=== PATIENT | female | born 1985 | race American Indian/Alaskan Native ===

== ENCOUNTER 2020-11-27 04:20 | Emergency (ER) | payer BC ==
[2020-11-27] MEDS ORDERED: ASPIRIN 325 MG TAB PO ONE (04:24)
--- NOTE | 2020-11-27 04:45 | Emergency Department Report ---
ED Chest Pain HPI - General Chief Complaint: Chest Pain Stated Complaint: CHEST PAIN,LT ARM PAIN,ZITA PUI?: No Time Seen by Provider: 11/27/20 04:37 Source: patient Mode of arrival: Ambulatory Limitations: No Limitations - History of Present Illness Initial Comments: Patient is a 35-year-old female that presents emergency room with complaints of left-sided chest pain and shortness of breath. Patient states chest pain started 1.5 hours ago. Patient states her shortness of breath started 1 hour ago. Patient states that her chest pain is a 8 out of 10. Patient states that the pain is better with rest and worse with movement of the left arm, palpation and deep breath. Patient states she feels like she is short of breath because of the pain in the left chest and because it hurts to take a deep breath. Patient denies chills. Patient denies cough. Patient denies nausea vomiting. Patient denies diaphoresis. Patient denies recent travel. Patient denies recent international travel. Patient denies exposure to the novel coronavirus. Patient denies sick contacts. Patient denies fever and chills. Patient denies cough. Patient denies diarrhea. Patient denies coming in contact with anybody with symptoms of the novel coronavirus. MD Complaint: chest pain -: Sudden Pain Location: left chest Pain Radiation: none Severity scale (0 -10): 8 Consistency: constant Improves With: rest Worsens With: inspiration, palpation, movement re: dyspnea. denies: nausea, vomting, diaphoresis, sense of impending doom Other Symptoms: denies: cough, fever, syncope, rash, acid taste in mouth, leg swelling, palpitations, burping Treatments Prior to Arrival: other (Ibuprofen) Aspirin use within the Past 7 Days: (0) No - Related Data On Oral Contraceptives: No Previous Rx's Medication Instructions Recorded Last Taken Type methylPREDNISolone [Medrol 4MG 4 mg PO DAILY 6 Days #1 tab.ds.pk 11/27/20 Unknown Rx DOSEPAK (21 tabs)] Allergies Allergy/AdvReac Type Severity Reaction Status Date / Time No Known Allergies Allergy Unverified 11/27/20 04:24 Heart Score - HEART Score History: Slightly suspicious EKG: Normal Age: < 45 Risk factors: No known risk factors Troponin: < normal limit HEART Score: 0 ED Review of Systems ROS: Stated complaint: CHEST PAIN,LT ARM PAIN,ZITA Other details as noted in HPI Constitutional: denies: chills, fever Eyes: denies: eye pain, eye discharge, vision change ENT: denies: ear pain, throat pain Respiratory: shortness of breath. denies: cough, wheezing Cardiovascular: chest pain. denies: palpitations Endocrine: no symptoms reported Gastrointestinal: denies: abdominal pain, nausea, diarrhea Genitourinary: denies: urgency, dysuria, discharge Musculoskeletal: denies: back pain, joint swelling, arthralgia Skin: denies: rash, lesions Neurological: denies: headache, weakness, paresthesias Psychiatric: denies: anxiety, depression Hematological/Lymphatic: denies: easy bleeding, easy bruising ED Past Medical Hx - Past Medical History Previous Medical History?: Yes Hx Asthma: Yes - Surgical History Past Surgical History?: Yes Hx Cholecystectomy: Yes - Family History Family history: no significant - Social History Smoking Status: Never Smoker Substance Use Type: None - Medications Home Medications: Home Medications Medication Instructions Recorded Confirmed Last Taken Type methylPREDNISolone [Medrol 4MG 4 mg PO DAILY 6 Days #1 tab.ds.pk 11/27/20 Unknown Rx DOSEPAK (21 tabs)] ED Physical Exam - General Limitations: No Limitations General appearance: alert, in no apparent distress - Head Head exam: Present: atraumatic, normocephalic - Eye Eye exam: Present: normal appearance - ENT ENT exam: Present: mucous membranes moist - Neck Neck exam: Present: normal inspection - Respiratory Respiratory exam: Present: normal lung sounds bilaterally, chest wall tenderness (Tenderness to palpation of the left chest. palpation of the left chest reproduces symptoms.). Absent: respiratory distress - Cardiovascular Cardiovascular Exam: Present: regular rate, normal rhythm. Absent: systolic murmur, diastolic murmur, rubs, gallop - GI/Abdominal GI/Abdominal exam: Present: soft, normal bowel sounds - Extremities Exam Extremities exam: Present: normal inspection - Back Exam Back exam: Present: normal inspection - Neurological Exam Neurological exam: Present: alert, oriented X3 - Psychiatric Psychiatric exam: Present: normal affect, normal mood - Skin Skin exam: Present: warm, dry, intact, normal color. Absent: rash ED Course Vital Signs 11/27/20 11/27/20 04:29 05:10 Temperature 98.3 F Pulse Rate 101 H Respiratory 20 26 H Rate Blood Pressure 137/82 [Left] O2 Sat by Pulse 96 Oximetry - Reevaluation(s) Reevaluation #1: Patient states her pain is better. Patient states her shortness of breath has resolved. I discussed all results and clinical findings with patient. I discussed plan of care with patient. Patient agrees with plan of care. Patient is stable for discharge. Patient will be discharged home. Patient given discharge instructions. Patient voiced understanding of discharge instructions. 11/27/20 06:12 KIM score - Kim Score Age > 65: (0) No Aspirin use within the Past 7 Days: (0) No 3 or more CAD Risk Factors: (0) No 2 or more Angina events in past 24 hrs: (0) No Known CAD with more than 50% Stenosis: (0) No Elevated Cardiac Markers: (0) No ST Deviation Greater than 0.5mm: (0) No KIM Score: 0 ED Medical Decision Making - Lab Data Result diagrams: 11/27/20 04:34 11/27/20 04:34 - EKG Data -: EKG Interpreted by Me EKG shows normal: sinus rhythm, axis, intervals, QRS complexes, ST-T waves Rate: normal - Radiology Data Radiology results: report reviewed, image reviewed interpreted by me: Chest x-ray: No pneumonia, no pneumothorax, no foreign body, no osseous findings, no acute findings - Medical Decision Making Patient is a 35-year-old female that presents emergency room with left sided chest pain. Patient's chest pain was reproducible on exam. Palpation of the left chest reproduces the symptoms. Patient clinical findings are consistent with chest wall pain. Patient had a chest x-ray which was negative for acute findings. Patient had labs done which were unremarkable. Patient's troponin was negative. Patient given steroids in the ER and her symptoms improved. Patient's consistent with costochondritis and muscular chest wall pain. - Differential Diagnosis Chest pain, chest wall tenderness, costochondritis, shortness of breath Critical care attestation.: If time is entered above; I have spent that time in minutes in the direct care of this critically ill patient, excluding procedure time. ED Disposition Clinical Impression: Anterior chest wall pain, SOB (shortness of breath) Chest pain Qualifiers: Chest pain type: unspecified Qualified Code(s): R07.9 - Chest pain, unspecified Disposition: TO HOME OR SELFCARE Is pt being admited?: No Does the pt Need Aspirin: No Condition: Stable Instructions: Chest Pain (ED), Nonspecific Chest Pain, Adult, [id number], Chest Wall Pain, [id number]-[id number] Additional Instructions: Patient to follow-up with primary care in 2 to 3 days. Patient to rest. Patient to increase water. Patient to avoid strenuous exercise or heavy lifting until cleared by primary care. Patient to take Tylenol or ibuprofen as needed for pain. Patient to take meds as directed. Patient to return to the ER if c ondition worsens, changes or new symptoms arise. Prescriptions: methylPREDNISolone [Medrol 4MG DOSEPAK (21 tabs)] 4 mg PO DAILY 6 Days #1 tab.ds.pk Referrals: PRIMARY CARE, [Primary Care Provider] - 2-3 Days Time of Disposition: 06:09
--- NOTE | 2020-11-27 04:55 | XRay Report ---
XR chest 1V ap INDICATION / CLINICAL INFORMATION: Chest Pain COMPARISON: None available. FINDINGS: SUPPORT DEVICES: None. HEART / MEDIASTINUM: No significant abnormality. LUNGS / PLEURA: Lungs are clear. Costophrenic sulci are sharp. No pneumothorax. ADDITIONAL FINDINGS: No significant additional findings. IMPRESSION: 1. No acute findings. Signer Name: Oscar Bello MD Signed: 11/27/2020 4:50 AM Workstation Name: [id number]
[2020-11-27 04:56] LABS: Basophils # (Auto) 0.1 K/mm3 (0.0-0.1); Eosinophils # (Auto) 0.3 K/mm3 (0.0-0.4); Eosinophils % (Auto) 5.7 % (0.0-4.3); Hematocrit 40.9 % (30.3-42.9); Hemoglobin 13.2 gm/dl (10.1-14.3); Lymphocytes # (Auto) 2.5 K/mm3 (1.2-5.4); Lymphocytes % (Auto) 47.6 % (13.4-35.0); Mean Corpuscular HGB Conc 32 % (30-34); Mean Corpuscular Volume 87 fl (79-97); Monocytes # (Auto) 0.4 K/mm3 (0.0-0.8); Monocytes % (Auto) 6.8 % (0.0-7.3); Platelet Count 194 K/mm3 (140-440); Red Blood Count 4.69 M/mm3 (3.65-5.03); Red Cell Distribution Width 13.6 % (13.2-15.2)
[2020-11-27] MEDS ORDERED: methylPREDNISolone Sod Succinate 125 MG/2 ML INJ IV ONE (04:58)
[2020-11-27 05:10] LABS: BUN/Creatinine Ratio 18; Blood Urea Nitrogen 14 mg/dL (7-17); Calcium 8.6 mg/dL (8.4-10.2); Hemolysis Index 18
[2020-11-27 06:32] VITALS: BP 142/82
== END 2020-11-27 06:33 | disposition home or self-care (01) ==
LOC: ED 04:20
DX: R07.89 Other chest pain (principal); R06.02 Shortness of breath; J45.909 Unspecified asthma, uncomplicated; Z90.49 Acquired absence of other specified parts of digestive tract; Z79.899 Other long term (current) drug therapy
CPT/HCPCS: 36415; 71045; 80048; 84484; 84703; 85025; 85379; 93005; 96374; 99284; J2930

== ENCOUNTER 2021-05-12 03:35 | Emergency (ER) | payer BC ==
[2021-05-12] MEDS ORDERED: HYDROcodone/ACETAMINOPHEN 5-325 MG TAB PO ONE (03:56)
[2021-05-12] MEDS ORDERED: ONDANSETRON 4 MG ODT TAB PO ONE (03:56)
[2021-05-12] MEDS ORDERED: KETOROLAC 30 MG/1 ML INJ IM ONE (03:56)
[2021-05-12] MEDS ORDERED: dexAMETHasone 20 MG/5 ML VIAL IM ONE (03:56)
--- NOTE | 2021-05-12 05:05 | Emergency Department Report ---
ED Back Pain/Injury HPI - General Chief Complaint: Back Pain/Injury Stated Complaint: Back pain Source: patient Mode of arrival: Ambulatory Limitations: No Limitations - History of Present Illness Initial Comments: Patient is a 35-year-old -[place] female with a history of asthma presents to the ED with complaint of acute onset persistent nontraumatic low back pain for the last 1 week worse in the last 2 days. Patient states that any movement makes the pain in the low back worse. Patient states that she has been taking dbya-qif-ncaleum pain medications with no relief. Patient denies dizziness, syncope, fall, traumatic injury, heavy lifting, abdominal pain, dysuria, urinary frequency and urgency, chest pain or shortness of breath, hematuria, vaginal bleeding, saddle paresthesia, numbness and tingling or weakness of lower extremities bilaterally. MD Complaint: back pain (Lower back) -: Sudden, week(s) (1) Similar Symptoms Previously: No Place: home Radiation: none Severity: severe Severity scale (0 -10): 8 Quality: sharp, aching Consistency: constant Improves With: none Worsens With: movement, sitting upright, walking Context: turning/twisting Associated Symptoms: denies other symptoms. denies: confusion, weakness, chest pain, numbness, difficulty walking, cough, difficulty urinating, diaphoresis, incontinence, fever/chills, constipation, headaches, abdominal pain, loss of appetite, malaise, nausea/vomiting, rash, seizure, shortness of breath, syncope, other Treatments Prior to Arrival: NSAIDS - Related Data Previous Rx's Medication Instructions Recorded Last Taken Type methylPREDNISolone [Medrol 4MG 4 mg PO DAILY 6 Days #1 tab.ds.pk 11/27/20 Unknown Rx DOSEPAK (21 tabs)] Baclofen 20 mg PO Q12H PRN #30 tablet 05/12/21 Unknown Rx Naproxen 500 mg PO Q12H PRN #30 tablet 05/12/21 Unknown Rx predniSONE [Deltasone] 40 mg PO QDAY #10 tab 05/12/21 Unknown Rx traMADoL [Ultram] 50 mg PO Q6HR PRN #12 tablet 05/12/21 Unknown Rx Allergies Allergy/AdvReac Type Severity Reaction Status Date / Time No Known Allergies Allergy Unverified 11/27/20 04:24 ED Review of Systems ROS: Stated complaint: Other details as noted in HPI Constitutional: denies: chills, fever Eyes: denies: eye pain, eye discharge, vision change ENT: denies: ear pain, throat pain Respiratory: denies: cough, shortness of breath, wheezing Cardiovascular: denies: chest pain, palpitations Endocrine: no symptoms reported Gastrointestinal: denies: abdominal pain, nausea, diarrhea Genitourinary: denies: urgency, dysuria, discharge Musculoskeletal: back pain (lower back pain), arthralgia (pain). denies: joint swelling Skin: denies: rash, lesions Neurological: denies: headache, weakness, paresthesias Psychiatric: denies: anxiety, depression Hematological/Lymphatic: denies: easy bleeding, easy bruising ED Past Medical Hx - Past Medical History Hx Asthma: Yes - Surgical History Hx Cholecystectomy: Yes - Social History Smoking Status: Never Smoker Substance Use Type: None - Medications Home Medications: Home Medications Medication Instructions Recorded Confirmed Last Taken Type methylPREDNISolone [Medrol 4MG 4 mg PO DAILY 6 Days #1 tab.ds.pk 11/27/20 Unknown Rx DOSEPAK (21 tabs)] Baclofen 20 mg PO Q12H PRN #30 tablet 05/12/21 Unknown Rx Naproxen 500 mg PO Q12H PRN #30 tablet 05/12/21 Unknown Rx predniSONE [Deltasone] 40 mg PO QDAY #10 tab 05/12/21 Unknown Rx traMADoL [Ultram] 50 mg PO Q6HR PRN #12 tablet 05/12/21 Unknown Rx ED Physical Exam - General General appearance: alert, in no apparent distress - Head Head exam: Present: atraumatic, normocephalic, normal inspection - Eye Eye exam: Present: normal appearance, PERRL, EOMI Pupils: Present: normal accommodation - ENT ENT exam: Present: normal exam, normal orophraynx, mucous membranes moist, TM's normal bilaterally, normal external ear exam - Neck Neck exam: Present: normal inspection, full ROM - Respiratory Respiratory exam: Present: normal lung sounds bilaterally. Absent: respiratory distress, wheezes, rales, rhonchi, chest wall tenderness, accessory muscle use, decreased breath sounds, prolonged expiratory - Cardiovascular Cardiovascular Exam: Present: regular rate, normal rhythm, normal heart sounds. Absent: systolic murmur, diastolic murmur, rubs, gallop - GI/Abdominal GI/Abdominal exam: Present: soft, normal bowel sounds. Absent: tenderness, guarding, rebound, hyperactive bowel sounds, hypoactive bowel sounds, organomegaly, mass - Extremities Exam Extremities exam: Present: normal inspection, full ROM, normal capillary refill. Absent: tenderness, pedal edema, joint swelling, calf tenderness - Back Exam Back exam: Present: normal inspection, full ROM, tenderness (Palpable lumbosac ral paraspinal musculoskeletal tenderness), muscle spasm, paraspinal tenderness. Absent: CVA tenderness (L), vertebral tenderness, rash noted - Neurological Exam Neurological exam: Present: alert, oriented X3, CN II-XII intact, normal gait, reflexes normal - Psychiatric Psychiatric exam: Present: normal affect, normal mood - Skin Skin exam: Present: warm, dry, intact, normal color. Absent: rash ED Course Vital Signs 05/12/21 05/12/21 03:35 05:20 Temperature 98.2 F Pulse Rate 64 77 Respiratory 16 16 Rate Blood Pressure 158/98 [Right] O2 Sat by Pulse 99 99 Oximetry ED Medical Decision Making - Medical Decision Making This is a 35-year-old -[place] female with a history of asthma presents to the ED with complaint of acute onset persistent nontraumatic low back pain for the last 1 week worse in the last 2 days. Patient states that any movement makes the pain in the low back worse. Patient states that she has been taking ookg-[id number] pain medications with no relief. In the ED, patient is alert and oriented x3 and is not in any distress but appears to be in significant pain. Patient was treated for pain in the ED and urinalysis showed no acute urinary tract infection and is unremarkable. On reevaluation, patient's pain is well controlled medication. Based on the history and physical exam findings, patient symptoms are likely musculoskeletal muscle spasm although other differential diagnoses were also considered. Patient was discharged home on pain medications and advised to follow-up with her primary care physician in 5 to 7 days for reevaluation. Patient was advised return to the ED immediately if symptoms get worse. - Differential Diagnosis Muscle spasm; muscle strain; degenerative joint disease; sciatica Critical care attestation.: If time is entered above; I have spent that time in minutes in the direct care of this critically ill patient, excluding procedure time. ED Disposition Clinical Impression: Acute bilateral low back pain without sciatica, Spasm of muscle of lower back Disposition: DC-01 TO HOME OR SELFCARE Is pt being admited?: No Does the pt Need Aspirin: No Condition: Stable Instructions: Muscle Cramps and Spasms, [id number], Acute Back Pain, Adult, Muscle Strain, [id number] Additional Instructions: Urinalysis is unremarkable. Your symptoms are likely due to musculoskeletal muscle strain or muscle spasm. Therefore take medication with food, drink plenty of fluids and follow-up with your primary care physician in 7 to 10 days for reevaluation. Return to the ED immediately if symptoms get worse. Prescriptions: Baclofen 20 mg PO Q12H PRN #30 tablet PRN Reason: Muscle Spasm predniSONE [Deltasone] 40 mg PO QDAY #10 tab Naproxen 500 mg PO Q12H PRN #30 tablet PRN Reason: Pain , Severe (7-10) traMADoL [Ultram] 50 mg PO Q6HR PRN #12 tablet PRN Reason: Pain Referrals: [facility] [Provider Group] - 3-5 Days Forms: Work/School Release Form(ED) Time of Disposition: 05:02 Print Language: [place]
[2021-05-12 06:35] LABS: Bilirubin,Urine NEG (Negative); Blood,Urine NEG (Negative); Color,Urine Yellow (Yellow); Mucus,Urine FEW /HPF; Protein,Urine <15 mg/dL mg/dL (Negative)
[2021-05-12 06:37] LABS: HCG Qualitative,Urine Negative (Negative)
[2021-05-12 07:22] VITALS: BP 158/98
== END 2021-05-12 05:20 | disposition home or self-care (01) ==
LOC: ED 03:35
DX: M54.42 Lumbago with sciatica, left side (principal); M54.41 Lumbago with sciatica, right side; M62.830 Muscle spasm of back; J45.909 Unspecified asthma, uncomplicated; Z90.49 Acquired absence of other specified parts of digestive tract; Z79.899 Other long term (current) drug therapy
CPT/HCPCS: 81001; 81025

== ENCOUNTER 2021-05-15 12:52 | Inpatient (IN) | payer BC ==
[2021-05-15] MEDS ORDERED: ONDANSETRON 4 MG/2 ML INJ IV ONE ×2 (13:57→16:29)
[2021-05-15] MEDS ORDERED: MORPHINE 2 MG/1 ML INJ IV ONE (13:57)
--- NOTE | 2021-05-15 14:18 | Emergency Department Report ---
ED General Adult HPI - General Chief complaint: Back Pain/Injury Stated complaint: BACK PAIN/SWELLING Time Seen by Provider: 05/15/21 13:29 Source: patient Mode of arrival: Ambulatory Limitations: No Limitations - History of Present Illness Initial comments: 35-year-old -Mauritan[place] female presents to the emergency room for back pain that has gotten worse. Patient states that she was here 2 days ago for the same complaint. Patient reports that the medications that she was discharged on has helped with her back but only if she is taking it. Patient states that the medicine does make her drowsy and she has not been able to follow-up with a pr ovider. Patient states now the pain is radiating to her right flank to the right front of her abdomen. Patient states that she is having some swelling to her right side of her abdomen. She reports that the pain is worsening with minimal movement. Patient denies any trauma. She does admit to nausea and vomiting. She has had her gallbladder removed in 2019. She states that she still has her appendix. She reports her last menstrual period was 04/29/2021. Patient denies any vaginal discharge no vaginal bleeding. Patient denies any fever chills. Onset/Timin Severity scale (0 -10): 10 Quality: stabbing, sharp Consistency: constant Improves with: medication Worsens with: movement Associated Symptoms: nausea/vomiting Treatments Prior to Arrival: NSAID - Related Data Previous Rx's Medication Instructions Recorded Last Taken Type methylPREDNISolone [Medrol 4MG 4 mg PO DAILY 6 Days #1 tab.ds.pk 11/27/20 Unknown Rx DOSEPAK (21 tabs)] Baclofen 20 mg PO Q12H PRN #30 tablet 05/12/21 Unknown Rx Naproxen 500 mg PO Q12H PRN #30 tablet 05/12/21 Unknown Rx predniSONE [Deltasone] 40 mg PO QDAY #10 tab 05/12/21 Unknown Rx traMADoL [Ultram] 50 mg PO Q6HR PRN #12 tablet 05/12/21 Unknown Rx Allergies Allergy/AdvReac Type Severity Reaction Status Date / Time No Known Allergies Allergy Verified 05/15/21 14:06 ED Review of Systems ROS: Stated complaint: BACK PAIN/SWELLING Other details as noted in HPI Comment: All other systems reviewed and negative ED Past Medical Hx - Past Medical History Previous Medical History?: Yes Hx Asthma: Yes - Surgical History Past Surgical History?: Yes Hx Cholecystectomy: Yes - Social History Smoking Status: Never Smoker Substance Use Type: None - Medications Home Medications: Home Medications Medication Instructions Recorded Confirmed Last Taken Type methylPREDNISolone [Medrol 4MG 4 mg PO DAILY 6 Days #1 tab.ds.pk 11/27/20 Unknown Rx DOSEPAK (21 tabs)] Baclofen 20 mg PO Q12H PRN #30 tablet 05/12/21 Unknown Rx Naproxen 500 mg PO Q12H PRN #30 tablet 05/12/21 Unknown Rx predniSONE [Deltasone] 40 mg PO QDAY #10 tab 05/12/21 Unknown Rx traMADoL [Ultram] 50 mg PO Q6HR PRN #12 tablet 05/12/21 Unknown Rx ED Physical Exam - General Limitations: No Limitations General appearance: alert, in distress (Appears uncomfortable) - Head Head exam: Present: atraumatic, normocephalic - Eye Eye exam: Present: normal appearance - ENT ENT exam: Present: normal external ear exam - Neck Neck exam: Present: normal inspection, full ROM - Respiratory Respiratory exam: Present: normal lung sounds bilaterally. Absent: chest wall tenderness, accessory muscle use - Cardiovascular Cardiovascular Exam: Present: regular rate - GI/Abdominal GI/Abdominal exam: Present: soft, distended (Right side), tenderness (Right side abdomen), normal bowel sounds. Absent: guarding - External exam: Present: normal external exam Speculum exam: Present: vaginal discharge Bi-manual exam: Present: cervical motion tendernes, adnexal tenderness - Extremities Exam Extremities exam: Present: normal inspection, full ROM - Back Exam Back exam: Present: tenderness, CVA tenderness (R) - Neurological Exam Neurological exam: Present: alert, oriented X3, abnormal gait - Psychiatric Psychiatric exam: Present: normal affect, normal mood - Skin Skin exam: Present: warm, dry, intact, normal color. Absent: rash ED Course Vital Signs 05/15/21 12:59 Temperature 98.3 F Pulse Rate 85 Respiratory 20 Rate Blood Pressure 139/90 O2 Sat by Pulse 95 Oximetry - Reevaluation(s) Reevaluation #1: 05/15/21 16:00 Patient reports she is having increased pain and requesting for pain medication. Provider put the order in for morphine 4 mg IV and Zosyn 4 mg IV. - Consultations Consultation #1: 05/15/21 18:56 Spoke to Antonia nurse practitioner for Dr. Burkett she states that she give a message for him. Both Dr. Burkett he recommends a pelvic ultrasound. Consultation #2: 05/15/21 19:32 Dr. Burkett came to evaluate patient performed a pelvic exam with hook loader with me. Cultures were obtained and sent to lab ED Medical Decision Making - Lab Data Result diagrams: 05/15/21 14:00 05/15/21 14:00 - Radiology Data Radiology results: report reviewed [facility] [address] [place] [address] Cat Scan Report Signed Patient: SUSAN MARTE MR#: [id number] : 1985 Acct:[id number] Age/Sex: 35 / F ADM Date: 05/15/21 Loc: ED Attending Dr: Ordering Physician: JOANNE ESTRADA Date of Service: 05/15/21 Procedure(s): CT abdomen pelvis w con Accession Number(s): [id number] cc: JOANNE ESTRADA CT ABDOMEN AND PELVIS WITH CONTRAST INDICATION / CLINICAL INFORMATION: Right lower quadrant pain and swelling. TECHNIQUE: Axial CT images were obtained through the abdomen and pelvis after 100 cc of Omnipaque [address] scans at this location are performed using CT dose reduction for ALARA by means of automated exposure control. COMPARISON: None available. FINDINGS: LOWER CHEST: No significant abnormality. LIVER: No significant abnormality. GALLBLADDER: No significant abnormality. BILE DUCTS: No significant abnormality. PANCREAS: No significant abnormality. SPLEEN: No significant abnormality. ADRENALS: No significant abnormality. RIGHT KIDNEY / URETER: No significant abnormality. LEFT KIDNEY / URETER: No significant abnormality. There is a retroaortic left renal vein. This is an anatomic variant STOMACH / SMALL BOWEL: No significant abnormality. COLON: No significant abnormality. APPENDIX: No significant abnormality. PERITONEUM: No free fluid. No free air. No fluid collection. LYMPH NODES: No significant adenopathy. AORTA / ARTERIES: No significant abnormality. IVC / VEINS: No significant abnormality. URINARY BLADDER: No significant abnormality. REPRODUCTIVE ORGANS: Tubal occlusion devices are noted. There are several right adnexal cyst which measure up to 2.6 cm. There is a 1.8 cm cyst in the right vulva. ADDITIONAL FINDINGS: None. SKELETAL SYSTEM: No significant abnormality. IMPRESSION: 1. There are several cysts in the right adnexa. There is a 1.8 cm cyst in the right vulva. There is no obstruction, inflammation, or free air. The appendix is unremarkable. Signer Name: Myles Medellin MD Signed: 05/15/2021 3:18 PM Workstation Name: [email or web address] Transcribed By: SS Dictated By: Myles Medellin MD Electronically Authenticated By: Myles Medellin MD Signed Date/Time: 05/15/211517 DD/ 13 TD/TT: [facility] [address] [place] [address] Ultrasound Report Signed Patient: SUSAN MARTE MR#: [id number] : 1985 Acct:[id number] Age/Sex: 35 / F ADM Date: 05/15/21 Loc: ED Attending Dr: Ordering Physician: JOANNE ESTRADA Date of Service: 05/15/21 Procedure(s): US pelvic complete Accession Number(s): [id number] cc: JOANNE ESTRADA ULTRASOUND PELVIS INDICATION: Multiple pelvic cyst with pelvic pain. TECHNIQUE: Transabdominal. Duplex Color Doppler used: Yes. COMPARISON: None available FINDINGS: Uterus: Present. Size: 8.4 x 4.6 x 5.3 cm. Endometrial complex: Thickened measuring 12 mm. Mass lesions: None. Additional findings: None. Right Ovary -- enlarged right ovary containing 2.0 x 1.4 cm corpus luteal cyst and complex hemorrhagic 3.2 x 2.0 x 2.0 cm cyst Blood flow: Normal. Cyst or mass: None. Left Ovary-- Normal. Blood flow: Normal. Cyst or mass: None. Urinary Bladder: Normal. Free Fluid: None. Additional Findings: None. IMPRESSION: 1. Right ovarian corpus luteal and complex 3.2 cm hemorrhagic cyst. No free fluid. In women of reproductive age: * Cysts 3 cm: At the discretion of the interpreting physician whether or not to describe them in the imaging report; do not need follow-up. Signer Name: Marco Bass MD Signed: 05/15/2021 7:35 PM Workstation Name: [id number] Transcribed By: TL Dictated By: Marco Bass MD Electronically Authenticated By: Marco Bass MD Signed Date/Time: 05/15/211934 DD/ 30 TD/TT: Print Cancel Print Cancel - Medical Decision Making 35-year-old -Mauritan[place] female presents to the emergency room for back pain that has gotten worse. Patient states that she was here 2 days ago for the same complaint. Patient reports that the medications that she was discharged on has helped with her back but only if she is taking it. Patient states that the medicine does make her drowsy and she has not been able to follow-up with a provider. Patient states now the pain is radiating to her right flank to the right front of her abdomen. Patient states that she is having some swelling to her right side of her abdomen. She reports that the pain is worsening with minimal movement. Patient denies any trauma. She does admit to nausea and vomiting. She has had her gallbladder removed in 2019. She states that she still has her appendix. She reports her last menstrual period was 04/29/2021. Patient denies any vaginal discharge no vaginal bleeding. Patient denies any fever chills. CBC CMP lipase urinalysis INT's morphine 2 mg Zofran [address] scan report states that she has an adnexal cyst on her right and 9 vulvar cyst on the right. Patient was examined by Dr. Burkett he recommends patient to be admitted for observation. He would like for me to initiate bridge orders in order for Rocephin [address] g IV[address] In[address] attending Dr. Seda Bunch at the time the patient is going to be admitted. Critical Care Time: Yes (35) Critical care attestation.: If time is entered above; I have spent that time in minutes in the direct care of this critically ill patient, excluding procedure time. ED Disposition Clinical Impression: Pelvic pain, Back pain Disposition: OP ADMIT IP TO THIS HOSP Is pt being admited?: Yes Does the pt Need Aspirin: No Condition: Stable Referrals: PRIMARY CARE, [Primary Care Provider] - 3-5 Days
[2021-05-15 14:19] LABS: Basophils # (Auto) 0.1 K/mm3 (0.0-0.1); Basophils % (Auto) 0.8 % (0.0-1.8); Eosinophils # (Auto) 0.1 K/mm3 (0.0-0.4); Eosinophils % (Auto) 1.9 % (0.0-4.3); Hematocrit 39.4 % (30.3-42.9); Hemoglobin 13.2 gm/dl (10.1-14.3); Lymphocytes # (Auto) 3.5 K/mm3 (1.2-5.4); Lymphocytes % (Auto) 49.4 % (13.4-35.0); Mean Corpuscular HGB Conc 34 % (30-34); Mean Corpuscular Volume 86 fl (79-97); Monocytes # (Auto) 0.4 K/mm3 (0.0-0.8); Monocytes % (Auto) 6.2 % (0.0-7.3); Platelet Count 187 K/mm3 (140-440); Red Blood Count 4.59 M/mm3 (3.65-5.03); Red Cell Distribution Width 14.1 % (13.2-15.2)
[2021-05-15 14:36] LABS: Alanine Aminotransferase 8 units/L (7-56); Albumin 4.1 g/dL (3.9-5); Blood Urea Nitrogen 9 mg/dL (7-17); Calcium 8.7 mg/dL (8.4-10.2); Hemolysis Index 2
[2021-05-15 14:37] LABS: BUN/Creatinine Ratio 13
--- NOTE | 2021-05-15 15:23 | Cat Scan Report ---
CT ABDOMEN AND PELVIS WITH CONTRAST INDICATION / CLINICAL INFORMATION: Right lower quadrant pain and swelling. TECHNIQUE: Axial CT images were obtained through the abdomen and pelvis after 100 cc of Omnipaque [address] scans at this location are performed using CT dose reduction for ALARA by means of automated exposure control. COMPARISON: None available. FINDINGS: LOWER CHEST: No significant abnormality. LIVER: No significant abnormality. GALLBLADDER: No significant abnormality. BILE DUCTS: No significant abnormality. PANCREAS: No significant abnormality. SPLEEN: No significant abnormality. ADRENALS: No significant abnormality. RIGHT KIDNEY / URETER: No significant abnormality. LEFT KIDNEY / URETER: No significant abnormality. There is a retroaortic left renal vein. This is an anatomic variant STOMACH / SMALL BOWEL: No significant abnormality. COLON: No significant abnormality. APPENDIX: No significant abnormality. PERITONEUM: No free fluid. No free air. No fluid collection. LYMPH NODES: No significant adenopathy. AORTA / ARTERIES: No significant abnormality. IVC / VEINS: No significant abnormality. URINARY BLADDER: No significant abnormality. REPRODUCTIVE ORGANS: Tubal occlusion devices are noted. There are several right adnexal cyst which me asure up to 2.6 cm. There is a 1.8 cm cyst in the right vulva. ADDITIONAL FINDINGS: None. SKELETAL SYSTEM: No significant abnormality. IMPRESSION: 1. There are several cysts in the right adnexa. There is a 1.8 cm cyst in the right vulva. There is no obstruction, inflammation, or free air. The appendix is unremarkable. Signer Name: Myles Medellin MD Signed: 05/15/2021 3:18 PM Workstation Name: [id number]
[2021-05-15 15:42] LABS: Bilirubin,Urine NEG (Negative); Blood,Urine NEG (Negative); Calcium Oxalate Crystals,Urine FEW; Color,Urine Yellow (Yellow); Mucus,Urine 3+ /HPF
[2021-05-15] MEDS ORDERED: MORPHINE 4 MG/1 ML INJ IV ONE ×2 (16:29→22:37)
--- NOTE | 2021-05-15 19:39 | Ultrasound Report ---
ULTRASOUND PELVIS INDICATION: Multiple pelvic cyst with pelvic pain. TECHNIQUE: Transabdominal. Duplex Color Doppler used: Yes. COMPARISON: None available FINDINGS: Uterus: Present. Size: 8.4 x 4.6 x 5.3 cm. Endometrial complex: Thickened measuring 12 mm. Mass lesions: None. Additional findings: None. Right Ovary -- enlarged right ovary containing 2.0 x 1.4 cm corpus luteal cyst and complex hemorrhagi c 3.2 x 2.0 x 2.0 cm cyst Blood flow: Normal. Cyst or mass: None. Left Ovary-- Normal. Blood flow: Normal. Cyst or mass: None. Urinary Bladder: Normal. Free Fluid: None. Additional Findings: None. IMPRESSION: 1. Right ovarian corpus luteal and complex 3.2 cm hemorrhagic cyst. No free fluid. In women of reproductive age: * Cysts 3 cm: At the discretion of the interpreting physician whether or not to describe them in the imaging report; do not need follow-up. Signer Name: Marco Bass MD Signed: 05/15/2021 7:35 PM Workstation Name: [id number]
[2021-05-15] MEDS ORDERED: cefTRIAXone/NS 1 GM/50 ML 1 GM/50 ML BAG IV ONE (19:42)
[2021-05-15] MEDS: KETOROLAC 30 MG/1 ML INJ IV SCH (22:10)
[2021-05-15] MEDS: DOCUSATE SODIUM 100 MG CAP PO SCH (22:22)
[2021-05-16] MEDS: D5W/0.45% NACL 1,000 ML IV SCH ×2 (00:06→13:20)
[2021-05-16] MEDS: KETOROLAC 30 MG/1 ML INJ IV SCH ×2 (02:57→10:54)
--- NOTE | 2021-05-16 04:00 | History and Physical Report ---
History of Present Illness Date of examination: 05/15/21 Date of admission: 05/15/21 19:38 History of present illness: This is a 35-year-old black female para 0-5-0-4 whose last menstrual period was April 29, 2021. I was called to see the patient due to ovarian cysts detected on CT scan. This is patient's second visit to the emergency room within a week. Patient initial complaint was lower back pain has become progressively worse she was treated 2 days prior with nonsteroidals and muscle relaxant without without relief from her pain which she says now she is feeling right flank and lower quadrant. Patient states she did have nausea and vomiting earlier in the day for presentation to the emergency room but denies any fever chills abnormal vaginal bleeding or vaginal discharge. 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 Patient denies any history of sexually transmitted infections. OB history: Patient has had 5 premature vaginal deliveries around 35 weeks with 1 infant from SIDS. Patient states she has regular menses Patient is sexually active and does not use contraceptives. Past History Past Medical History: other (Asthma) Past Surgical History: cholecystectomy (2019) Social history: single, full code Family history: CAD, hypertension Medications and Allergies Allergies Allergy/AdvReac Type Severity Reaction Status Date / Time No Known Allergies Allergy Verified 05/15/21 14:06 Home Medications Medication Instructions Recorded Confirmed Last Taken Type methylPREDNISolone [Medrol 4MG 4 mg PO DAILY 6 Days #1 tab.ds.pk 11/27/20 Unknown Rx DOSEPAK (21 tabs)] Baclofen 20 mg PO Q12H PRN #30 tablet 05/12/21 Unknown Rx Naproxen 500 mg PO Q12H PRN #30 tablet 05/12/21 Unknown Rx predniSONE [Deltasone] 40 mg PO QDAY #10 tab 05/12/21 Unknown Rx traMADoL [Ultram] 50 mg PO Q6HR PRN #12 tablet 05/12/21 Unknown Rx Active Meds: Active Medications Docusate Sodium (Docusate Sodium 100 Mg Cap) 100 mg PO BID [facility] Last Admin: 05/15/21 22:22 Dose: 100 mg Documented by: Dextrose/Sodium Chloride (D5/0.45ns) 1,000 mls @ 125 mls/hr IV DIRECT [facility] Last Admin: 05/16/21 00:06 Dose: 125 mls/hr Documented by: Ketorolac Tromethamine (Ketorolac 30 Mg/1 Ml Inj) 30 mg IV Q6H [facility] Stop: 05/16/21 10:00 Last Admin: 05/16/21 02:57 Dose: 30 mg Documented by: Ondansetron HCl (Ondansetron 4 Mg/2 Ml Inj) 4 mg IV Q8H PRN PRN Reason: Nausea And Vomiting Sodium Chloride (Sodium Chloride 0.9% 10 Ml Flush Syringe) 10 ml IV BID [facility] Last Admin: 05/15/21 22:12 Dose: 10 ml Documented by: Sodium Chloride (Sodium Chloride 0.9% 10 Ml Flush Syringe) 10 ml IV PRN PRN PRN Reason: LINE FLUSH Review of Systems Breasts: deferred Cardiovascular: no chest pain Respiratory: no cough Gastrointestinal: nausea, vomiting Exam - Constitutional Vitals: Temp Pulse Resp BP Pulse Ox 98.1 F 53 L 18 163/88 99 05/15/21 23:51 05/15/21 23:51 05/15/21 23:51 05/15/21 23:51 05/15/21 23:51 General appearance: Present: mild distress - Respiratory Respiratory effort: normal - Cardiovascular Rhythm: regular - Extremities Extremities: no ischemia, No edema, Full ROM - Abdominal General gastrointestinal: Present: soft, tender (Right lower quadrant with some guarding) Localized gastrointestinal: tender: RLQ, guarding: RLQ Female genitourinary: Present: normal - Rectal Rectal Exam: deferred - Integumentary Integumentary: Present: clear, warm, dry - Musculoskeletal Musculoskeletal: gait normal, strength equal bilaterally - Psychiatric Psychiatric: appropriate mood/affect, intact judgment & insight - Neurologic Neurologic: moves all extremities Results - Labs CBC & Chem 7: 05/16/21 06:38 05/15/21 14:00 Labs: Abnormal lab results 05/15/21 05/15/21 Range/Units 14:00 14:00 Lymph % (Auto) 49.4 H (13.4-35.0) % Potassium 3.1 L (3.6-5.0) mmol/L - Imaging and Cardiology CT scan - pelvis: report reviewed, other (Pelvic ultrasound reviewed) Assessment and Plan - Patient Problems (1) Back pain Current Visit: Yes Status: Acute Qualifiers: Back pain location: low back pain Chronicity: acute Back pain laterality: unspecified (2) Pelvic pain Current Visit: Yes Status: Acute Plan to address problem: Patient is tender with some guarding but pain originated in her lower back. Due to the level of the patient's pain and failure relief with outpatient medication we will admit her for observation and pain management. We will try to rule out infectious cause of her pain discussed the possibility of operative intervention if pain worsens. (3) Ovarian cyst Current Visit: Yes Status: Acute Qualifiers: Laterality: right Qualified Code(s): N83.201 - Unspecified ovarian cyst, right side Plan to address problem: Patient with cyst that could be compatible with hemorrhagic cyst also time is consistent with ovulation and what appears to be a possible corpus luteum. The cyst seen is less than 3 cm and may be a treatment to her pain but does not appear to be large enough to account for her lower back pain. Radiologist the imaging does not appear to be consistent with abscess patient gonorrhea and Chlamydia test pending. Will give 1 dose of Rocephin.
[2021-05-16] MEDS ORDERED: traMADol 50 MG TAB PO PRN ×2 (04:06→10:25)
[2021-05-16] MEDS: ONDANSETRON 4 MG/2 ML INJ IV PRN ×2 (04:08→18:39)
[2021-05-16 07:30] LABS: Hematocrit 38.8 % (30.3-42.9); Hemoglobin 13.2 gm/dl (10.1-14.3); Mean Corpuscular HGB Conc 34 % (30-34); Mean Corpuscular Volume 86 fl (79-97); Platelet Count 170 K/mm3 (140-440); Red Blood Count 4.54 M/mm3 (3.65-5.03)
[2021-05-16 09:35] LABS: Band Neutrophils # (Manual) 0.1 K/mm3; RBC Morphology Normal; Total Cells Counted 100
--- NOTE | 2021-05-16 10:17 | Progress Note ---
Assessment and Plan - Patient Problems (1) Back pain Current Visit: Yes Status: Acute Qualifiers: Back pain location: low back pain Chronicity: acute Back pain laterality: unspecified (2) Pelvic pain Current Visit: Yes Status: Acute (3) Ovarian cyst Current Visit: Yes Status: Acute Qualifiers: Laterality: right Qualified Code(s): N83.201 - Unspecified ovarian cyst, right side Plan to address problem: Still feel that the cyst is not likely the source of patient pain. We will continue to monitor and await results of her gonorrhea and chlamydia testing. (4) Right flank pain Current Visit: Yes Status: Acute Plan to address problem: Discussed patient symptoms and her findings on radiological imaging with Dr. Atkins. To the patient's normal CT scan and the radiation nature of her pain feels that most likely secondary to possible pinched nerve. Recommendation of anti-inflammatory medications and rest. He has offered to see the patient on Monday if feel that is needed. Discussed conversation with the patient. Her questions were answered. She agrees with the plan of care. (5) Acute bilateral low back pain without sciatica Current Visit: No Status: Acute Plan to address problem: Appreciate Dr. Atkins's help will continue to treat patient with most likely etiology of her pain is musculoskeletal. Subjective Date of service: 05/16/21 Principal diagnosis: Low back, pelvic and flank pain Interval history: Patient states that the pain is more prevalent in her right flank with radiation from her mid to lower back that she has noticed the last 2 time she is urinated. Patient still denies any vaginal discharge or abnormal vaginal bleeding. 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 Complains of hunger and denies any nausea and vomiting. Objective - Constitutional Vitals: Vital Signs - 12hr 05/15/21 05/15/21 05/16/21 22:34 23:51 04:14 Temperature 97.8 F 98.1 F 97.8 F Pulse Rate 62 53 L 55 L Respiratory 18 18 20 Rate Blood Pressure 164/88 Blood Pressure 149/92 163/88 [Left] O2 Sat by Pulse 100 99 95 Oximetry 05/16/21 07:42 Temperature 98.1 F Pulse Rate 62 Respiratory 18 Rate Blood Pressure 140/88 Blood Pressure [Left] O2 Sat by Pulse 99 Oximetry General appearance: Present: mild distress - Respiratory Respiratory effort: normal - Breasts Breasts: deferred - Cardiovascular Rhythm: regular Extremities: pulses intact, No edema, normal color, Full ROM - Gastrointestinal General gastrointestinal: Present: soft, tender Localized gastrointestinal: tender: RLQ (Right flank) - Genitourinary Female genitourinary: deferred - Integumentary Integumentary: clear, warm, dry - Neurologic Neurologic: moves all extremities - Psychiatric Psychiatric: memory intact, appropriate mood/affect, intact judgment & insight - Labs CBC & Chem 7: 05/16/21 06:38 05/15/21 14:00 Labs: Abnormal lab results 05/15/21 05/15/21 05/16/21 Range/Units 14:00 14:00 06:38 Lymph % (Auto) 49.4 H (13.4-35.0) % Seg Neuts % (Manual) 27.0 L (40.0-70.0) % Lymphocytes % (Manual) 64.0 H (13.4-35.0) % Seg Neutrophils # Man 1.5 L (1.8-7.7) K/mm3 Potassium 3.1 L (3.6-5.0) mmol/L Medications & Allergies - Medications Allergies/Adverse Reactions: Allergies No Known Allergies Allergy (Verified 05/15/21 14:06) Home Medications: Home Medications Medication Instructions Recorded Confirmed Last Taken Type methylPREDNISolone [Medrol 4MG 4 mg PO DAILY 6 Days #1 tab.ds.pk 11/27/20 Unknown Rx DOSEPAK (21 tabs)] Baclofen 20 mg PO Q12H PRN #30 tablet 05/12/21 Unknown Rx Naproxen 500 mg PO Q12H PRN #30 tablet 05/12/21 Unknown Rx predniSONE [Deltasone] 40 mg PO QDAY #10 tab 05/12/21 Unknown Rx traMADoL [Ultram] 50 mg PO Q6HR PRN #12 tablet 05/12/21 Unknown Rx Active Medications: Generic Name Dose Route Start Last Admin Trade Name Thaiq PRN Reason Stop Dose Admin Docusate Sodium 100 mg 05/15/21 22:00 05/15/21 22:22 Docusate Sodium 100 Mg Cap PO 100 mg BID [facility] Administration Dextrose/Sodium Chloride 1,000 mls @ 125 mls/hr 05/15/21 21:00 05/16/21 00:06 D5/0.45ns IV 125 mls/hr DIRECT [facility] Administration Ondansetron HCl 4 mg 05/15/21 20:45 05/16/21 04:08 Ondansetron 4 Mg/2 Ml Inj IV 4 mg Q8H PRN Administration Nausea And Vomiting Sodium Chloride 10 ml 05/15/21 22:00 05/15/21 22:12 Sodium Chloride 0.9% 10 Ml Flush Syringe IV 10 ml BID [facility] Administration Sodium Chloride 10 ml 05/15/21 20:45 Sodium Chloride 0.9% 10 Ml Flush Syringe IV PRN PRN LINE FLUSH Tramadol HCl 50 mg 05/16/21 04:06 05/16/21 04:38 Tramadol 50 Mg Tab PO 50 mg Q6H PRN Administration Pain, Moderate (4-6)
[2021-05-16] MEDS: DOCUSATE SODIUM 100 MG CAP PO SCH ×2 (10:59→22:22)
[2021-05-16] MEDS ORDERED: MORPHINE 4 MG/1 ML INJ IV ONE (15:25)
[2021-05-16] MEDS: traMADol 50 MG TAB PO SCH (21:39)
[2021-05-16] MEDS: dexAMETHasone 4 MG/ML VIAL IV SCH (21:40)
[2021-05-17] MEDS: traMADol 50 MG TAB PO SCH ×4 (03:42→22:35)
[2021-05-17] MEDS: D5W/0.45% NACL 1,000 ML IV SCH ×3 (05:51→22:35)
[2021-05-17] MEDS ORDERED: oxyCODONE /ACETAMINOPHEN 5-325MG TAB PO NR (07:25)
[2021-05-17] MEDS: DOCUSATE SODIUM 100 MG CAP PO SCH ×2 (10:40→22:36)
[2021-05-17] MEDS: dexAMETHasone 4 MG/ML VIAL IV SCH ×2 (10:40→22:35)
[2021-05-17] MEDS: ONDANSETRON 4 MG/2 ML INJ IV PRN (10:48)
--- NOTE | 2021-05-17 11:39 | Progress Note ---
Assessment and Plan - Patient Problems (1) Back pain Current Visit: Yes Status: Acute Qualifiers: Back pain location: low back pain Chronicity: acute Back pain laterality: unspecified Plan to address problem: Pain is now also radiating to her thoracic spine. Appears to be neurological in origin. We will again to attempt to obtain a neurology consult. Patient does have a history of chickenpox and discussed the possibility shingles. (2) Pelvic pain Current Visit: Yes Status: Acute Plan to address problem: Pain has decreased with now majority of her complaints are back pain (3) Ovarian cyst Current Visit: Yes Status: Acute Qualifiers: Laterality: right Qualified Code(s): N83.201 - Unspecified ovarian cyst, right side Plan to address problem: Radiologic images consistent with the probable functional cyst and unlikely cause of her back pain (4) Right flank pain Current Visit: Yes Status: Acute Plan to address problem: Continues present treatment with schedule tramadol and patient recently had Percocet for breakthrough pain. Still appears unlikely due to to kidney stones due to the CT scan results noted earlier (5) Acute bilateral low back pain without sciatica Current Visit: No Status: Acute Subjective Date of service: 05/17/21 Principal diagnosis: Low back, pelvic and flank pain Interval history: Patient stated the pain is now radiating up to her thoracic spine. Also stated that the nurse earlier notices a rash on her upper back where she felt the pain. Objective - Constitutional Vitals: Vital Signs - 12hr 05/17/21 05/17/21 05/17/21 00:42 05:20 08:35 Temperature 98.2 F 98.2 F 98.2 F Pulse Rate 70 64 53 L Respiratory 18 18 16 Rate Blood Pressure 125/77 126/84 153/87 O2 Sat by Pulse 99 100 96 Oximetry General appearance: Present: mild distress - Respiratory Respiratory effort: normal - Breasts Breasts: deferred - Cardiovascular Rhythm: regular Extremities: no ischemia, No edema - Gastrointestinal General gastrointestinal: Present: soft, tender (Right lower quadrant but less than before) Rectal Exam: deferred - Genitourinary Female genitourinary: deferred - Psychiatric Psychiatric: memory intact, appropriate mood/affect, intact judgment & insight - Labs CBC & Chem 7: 05/16/21 06:38 05/15/21 14:00 Medications & Allergies - Medications Allergies/Adverse Reactions: Allergies No Known Allergies Allergy (Verified 05/15/21 14:06) Home Medications: Home Medications Medication Instructions Recorded Confirmed Last Taken Type methylPREDNISolone [Medrol 4MG 4 mg PO DAILY 6 Days #1 tab.ds.pk 11/27/20 05/17/21 05/14/21 Rx DOSEPAK (21 tabs)] Baclofen 20 mg PO Q12H PRN #30 tablet 05/12/21 05/17/21 05/14/21 Rx Naproxen 500 mg PO Q12H PRN #30 tablet 05/12/21 05/17/21 05/14/21 Rx predniSONE [Deltasone] 40 mg PO QDAY #10 tab 05/12/21 05/17/21 05/14/21 Rx traMADoL [Ultram] 50 mg PO Q6HR PRN #12 tablet 05/12/21 05/17/21 05/14/21 Rx Active Medications: Generic Name Dose Route Start Last Admin Trade Name Freq PRN Reason Stop Dose Admin Dexamethasone 4 mg 05/16/21 22:00 05/17/21 10:40 Dexamethasone 4 Mg/Ml Vial IV 4 mg Q12HR DENTON Administration Docusate Sodium 100 mg 05/15/21 22:00 05/17/21 10:40 Docusate Sodium 100 Mg Cap PO 100 mg BID D[place]ON Administration Dextrose/Sodium Chloride 1,000 mls @ 125 mls/hr 05/15/21 21:00 05/17/21 05:51 D5/0.45ns IV 125 mls/hr DIRECT [place] Administration Ondansetron HCl 4 mg 05/15/21 20:45 05/17/21 10:48 Ondansetron 4 Mg/2 Ml Inj IV 4 mg Q8H PRN Administration Nausea And Vomiting Oxycodone/Acetaminophen 2 tab 05/17/21 11:00 Oxycodone /Acetaminophen 5-325mg Tab PO Q6H PRN Pain, Moderate (4-6) Sodium Chloride 10 ml 05/15/21 22:00 05/17/21 10:42 Sodium Chloride 0.9% 10 Ml Flush Syringe IV 10 ml BID D[place] Administration Sodium Chloride 10 ml 05/15/21 20:45 Sodium Chloride 0.9% 10 Ml Flush Syringe IV PRN PRN LINE FLUSH Tramadol HCl 100 mg 05/16/21 22:00 06/28/21 10:41 Tramadol 50 Mg Tab PO 100 mg Q6H DENTON Administration
--- NOTE | 2021-05-17 13:06 | Event Note ---
Date: 05/17/21 Patient is resting without pain at present. Neurology consult with Dr. Verma has been placed.
[2021-05-17] MEDS: oxyCODONE /ACETAMINOPHEN 5-325MG TAB PO PRN ×2 (14:24→19:37)
--- NOTE | 2021-05-17 15:32 | Consultation ---
History of Present Illness Consult date: 05/17/21 Reason for Consult: Pain Chief complaint: Back Pain History of present illness: 35 yo female with known ovarian cyst(s), who presents with c/o worsening lower back pain with pain now radiating from the back to the right lower quadrant of the abdomen. She also notes pain at he mid-thoracic spine that is tender to flakito ch. Denies any rash. Notes no c/o fever, night sweats, chills, or trauma. Does not c/o any headache, nausea, emesis, vertigo, weakness/numbness/tingling, or chest pain/pressure. Past History Past Medical History: other (Asthma) Past Surgical History: cholecystectomy (2019) Social history: single, full code Family history: CAD, hypertension Medications and Allergies Allergies Allergy/AdvReac Type Severity Reaction Status Date / Time No Known Allergies Allergy Verified 05/15/21 14:06 Home Medications Medication Instructions Recorded Confirmed Last Taken Type methylPREDNISolone [Medrol 4MG 4 mg PO DAILY 6 Days #1 tab.ds.pk 11/27/20 05/17/21 05/14/21 Rx DOSEPAK (21 tabs)] Baclofen 20 mg PO Q12H PRN #30 tablet 05/12/21 05/17/21 05/14/21 Rx Naproxen 500 mg PO Q12H PRN #30 tablet 05/12/21 05/17/21 05/14/21 Rx predniSONE [Deltasone] 40 mg PO QDAY #10 tab 05/12/21 05/17/21 05/14/21 Rx traMADoL [Ultram] 50 mg PO Q6HR PRN #12 tablet 05/12/21 05/17/21 05/14/21 Rx Active Meds: Active Medications Dexamethasone (Dexamethasone 4 Mg/Ml Vial) 4 mg IV Q12HR D[place]ON Last Admin: 05/17/21 10:40 Dose: 4 mg Documented by: Docusate Sodium (Docusate Sodium 100 Mg Cap) 100 mg PO BID [place] Last Admin: 05/17/21 10:40 Dose: 100 mg Documented by: Dextrose/Sodium Chloride (D5/0.45ns) 1,000 mls @ 125 mls/hr IV DIRECT [place]ON Last Admin: 05/17/21 13:13 Dose: 125 mls/hr Documented by: Ondansetron HCl (Ondansetron 4 Mg/2 Ml Inj) 4 mg IV Q8H PRN PRN Reason: Nausea And Vomiting Last Admin: 05/17/21 10:48 Dose: 4 mg Documented by: Oxycodone/Acetaminophen (Oxycodone /Acetaminophen 5-325mg Tab) 2 tab PO Q6H PRN PRN Reason: Pain, Moderate (4-6) Last Admin: 05/17/21 14:24 Dose: 2 tab Documented by: Sodium Chloride (Sodium Chloride 0.9% 10 Ml Flush Syringe) 10 ml IV BID [facility] Last Admin: 05/17/21 10:42 Dose: 10 ml Documented by: Sodium Chloride (Sodium Chloride 0.9% 10 Ml Flush Syringe) 10 ml IV PRN PRN PRN Reason: LINE FLUSH Tramadol HCl (Tramadol 50 Mg Tab) 100 mg PO Q6H [facility] Last Admin: 05/17/21 10:41 Dose: 100 mg Documented by: Review of Systems All systems: negative (as per HPI;) Physical Examination - Vital Signs Vital Signs: Vital Signs Temp Pulse Resp BP Pulse Ox 98.3 F 85 20 139/90 95 05/15/21 12:59 05/15/21 12:59 05/15/21 12:59 05/15/21 12:59 05/15/21 12:59 - Physical Exam Narrative exam: Gen: nad, well-nourished; Head: normocephalic; Eyes: no gaze deviation; no ptosis; ENT: normal vocalization; CVS: warm and well-perfused; Pulm: no respiratory distress; GI: appears non-distended; Ext: no cyanosis or edema at distal extremities; tenderness to palpation of midline mid-thoracic spine; Skin: no acute rash at distal extremities or on the back; Heme: no pathologic bruising or ecchymosis at distal extremities; Neuro: alert, oriented to name, age, month, year, surroundings, no dysarthria, no aphasia, CN 2 - PERRL, visual rodriguez grossly intact except ?difficulty w/ left eye visual rodriguez to the left, CN 3, 4, 6 - EOMI, CN 5 - facial sensation symmetric to light touch except at right V1, CN 7 - facial movement symmetric, CN 8 - hearing grossly intact, CN 9, 10 - uvula midline, CN 11 - shrug symmetric, CN 12 - tongue midline; Motor - at least 4/5 in all exts w/ pain with movement of RLe secondary to calf pain; Sensory - light touch symmetric except decreased at right arm, Cerebellar - fnf /hts intact, Gait - deferred secondary to fall risk; Results - Laboratory Findings CBC and BMP: 05/16/21 06:38 05/15/21 14:00 Abnormal Lab Findings: Abnormal Labs 05/15/21 05/15/21 05/16/21 14:00 14:00 06:38 Lymph % (Auto) 49.4 H Seg Neuts % (Manual) 27.0 L Lymphocytes % (Manual) 64.0 H Seg Neutrophils # Man 1.5 L Potassium 3.1 L Assessment and Plan 35 yo female with known ovarian cyst(s), who presents with c/o worsening lower back pain with pain now radiating from the back to the right lower quadrant of the abdomen. She also notes pain at he mid-thoracic spine that is tender to touch. Denies any rash. Notes no c/o fever, night sweats, chills, or trauma. Does not c/o any headache, nausea, emesis, vertigo, weakness/numbness/tingling, or chest pain/pressure. 1. Back Pain - atypical presentation; recommend MR C/T/L Spine w/ wo contrast; conservative pain management only. 2. Left eye visual field changes - recommend MR Brain w/ wo contast. 3. Paresthesias - awaitng MR imaging; esr, crp, rpr, tsh, b12, spep, upep, a1c. 4. Abdominal distension / radiation of pain - per primary team. Noe Verma MD Neurology
--- NOTE | 2021-05-17 16:58 | Event Note ---
Date: 05/17/[address] Verma's recommendations with patient. She states her pain management is much better. Offered discharge with outpatient scheduling to be done. Patient declined. Patient desires MRI to be done tomorrow if possible.
[2021-05-18] MEDS: oxyCODONE /ACETAMINOPHEN 5-325MG TAB PO PRN ×4 (02:59→21:18)
[2021-05-18] MEDS: traMADol 50 MG TAB PO SCH ×4 (04:53→23:55)
[2021-05-18] MEDS: dexAMETHasone 4 MG/ML VIAL IV SCH ×2 (10:55→21:18)
[2021-05-18] MEDS: DOCUSATE SODIUM 100 MG CAP PO SCH ×2 (10:55→21:18)
--- NOTE | 2021-05-18 11:00 | Magnetic Resonance Report ---
MR lumbar spine wo/w con INDICATION / CLINICAL INFORMATION: 35 years Female; Back/Neck pain with paresthesias. TECHNIQUE: Multisequence, multiplanar images of the lumbar spine were obtained. COMPARISON: None available. FINDINGS: ALIGNMENT: There is minimal retrolisthesis at L5-S1 and minimal curvature of the lower lumbar spine, convex toward the left. VERTEBRAE:Mild focal endplate changes anteriorly at L5-S1 with mild edema. The vertebral bodies other [place] appear to demonstrate appropriate signal intensity. VISUALIZED SPINAL CORD: No significant abnormality. [id number] ANALYSIS: L1-2: No significant abnormality. L2-3: No significant abnormality. L3-4: No significant abnormality. L4-5: There is a mild central disc bulge without significant spinal stenosis or foraminal narrowing. L5-S1: There is also mild disc bulge and facet joint changes without ossific and spinal stenosis or f oraminal narrowing PARASPINAL SOFT TISSUES: There is a partially visualized 2.8 cm cystic lesion within the included rig ht adnexa most consistent with an ovarian cyst. ADDITIONAL FINDINGS: No epidural collections or intradural enhancing lesions are appreciated. IMPRESSION: 1. There are mild disc bulges and degenerative changes at L4-5 and L5-S1 without significant stenosis involving the lumbar spine. Signer Name: William Lopez MD Signed: 05/18/2021 10:55 AM Workstation Name: [id number]
--- NOTE | 2021-05-18 11:06 | Magnetic Resonance Report ---
MRI THORACIC SPINE with and without IV contrast. INDICATION / CLINICAL INFORMATION: Back/Neck pain with paresthesias . TECHNIQUE: Multisequence, multiplanar images of the thoracic spine were obtained. COMPARISON: None available. FINDINGS: ALIGNMENT: There appears be slight curvature the mid thoracic spine, convex toward the right. There i s no significant spondylolisthesis. VERTEBRAE:The motion degrades the image quality. However, the thoracic vertebral bodies appear to dem onstrate appropriate signal intensity without significant edema or evidence of recent compression fra cture. VISUALIZED SPINAL CORD: The thoracic spinal cord grossly demonstrate appropriate morphology and signa l intensity. INTERVERTEBRAL DISCS: There is a mild left-sided disc bulge at T4-5 which slightly encroaches on the lateral recesses without significant stenosis at. There is no evidence of disc protrusion or signific ant spinal stenosis involving remaining thoracic segments at. PARASPINAL SOFT TISSUES: No significant abnormality. ADDITIONAL FINDINGS: No epidural collections are identified. The motion particularly degrades the pos tcontrast imaging. However, no definitive intradural enhancing lesions are appreciated. IMPRESSION: 1. There is no disc protrusion or significant stenosis involving the thoracic spine. . Signer Name: William Lopez MD Signed: 05/18/2021 11:01 AM Workstation Name: [id number]
--- NOTE | 2021-05-18 12:12 | Magnetic Resonance Report ---
MRI CERVICAL SPINE WITHOUT AND WITH CONTRAST INDICATION / CLINICAL INFORMATION: Back/Neck pain with paresthesias PATIENT MOTION, BEST POSSIBLE EXAM.. TECHNIQUE: Multisequence, multiplanar images of the cervical spine were obtained. COMPARISON: None available. FINDINGS: LIMITATIONS: Patient motion artifact degrades image quality and is a limiting factor on this examinat ion. POSTOPERATIVE CHANGES: none CRANIOCERVICAL JUNCTION:No significant abnormality. ALIGNMENT: Normal alignment is maintained throughout the cervical region. VERTEBRAE:No significant areas of abnormal bone marrow signal intensity are identified. Prominent bas ivertebral veins are seen at several locations. CERVICAL INTERVERTEBRAL DISCS:Disc height and signal intensity are normally maintained. VISUALIZED SPINAL CORD: No intrinsic cord lesions are identified. Motion artifact degrades image qual ity and limits evaluation of the spinal cord parenchyma. [id number] ANALYSIS: C2-3: No significant disc abnormality, spinal canal stenosis, or neural foraminal stenosis. C3-4: No significant disc abnormality, spinal canal stenosis, or neural foraminal stenosis. C4-5: No significant disc abnormality, spinal canal stenosis, or neural foraminal stenosis. C5-6: No significant disc abnormality, spinal canal stenosis, or neural foraminal stenosis. C6-7: No significant disc abnormality, spinal canal stenosis, or neural foraminal stenosis. C7-T1: No significant disc abnormality, spinal canal stenosis, or neural foraminal stenosis. PARASPINAL SOFT TISSUES: No significant abnormality. Contrast administration: Following administration of intravenous contrast material enhancement of nor mal vascular structures is demonstrated. No areas of abnormal contrast enhancement are identified. IMPRESSION: 1. Limited study secondary to patient motion artifact. 2. Otherwise negative MRI cervical spine without and with contrast. Signer Name: Jeff Aldrich MD Signed: 05/18/2021 12:07 PM Workstation Name: [id number]
[2021-05-18] MEDS ORDERED: hydrALAZINE 20 MG/1 ML INJ IV PRN (14:54)
--- NOTE | 2021-05-18 17:47 | Event Note ---
Date: 05/18/21 Resting in Bed, feels better.MRI results discussed. Neurology note reviewed. She does not have a gynecologic problem therefore will consult IM for transfer of care vs allow home for outpatient evaluation. Dr. Javed aware
--- NOTE | 2021-05-18 20:48 | Consultation ---
History of Present Illness - Reason for Consult Consult date: 05/18/21 Medical management Requesting physician: EDEL FORTE - History of Present Illness Patient was admitted for acute low back pain which is nearly resolved now. Patient had extensive work-up including C-spine T-spine and L-spine MRI which were reviewed and no acute discitis or disc prolapse. No visual field loss Patient was examined by bedside Visual rodriguez were normal No focal deficits Power is 5/5 power in all 4 extremities Past History Past Medical History: other (Asthma) Past Surgical History: cholecystectomy (2019) Social history: single, full code Family history: CAD, hypertension Past History Past Medical History: other (Asthma) Past Surgical History: cholecystectomy (2019) Social history: single, full code Family history: CAD, hypertension Medications and Allergies Allergies Allergy/AdvReac Type Severity Reaction Status Date / Time No Known Allergies Allergy Verified 05/15/21 14:06 Home Medications Medication Instructions Recorded Confirmed Last Taken Type methylPREDNISolone [Medrol 4MG 4 mg PO DAILY 6 Days #1 tab.ds.pk 11/27/20 05/17/21 05/14/21 Rx DOSEPAK (21 tabs)] Baclofen 20 mg PO Q12H PRN #30 tablet 05/12/21 05/17/21 05/14/21 Rx Naproxen 500 mg PO Q12H PRN #30 tablet 05/12/21 05/17/21 05/14/21 Rx predniSONE [Deltasone] 40 mg PO QDAY #10 tab 05/12/21 05/17/21 05/14/21 Rx traMADoL [Ultram] 50 mg PO Q6HR PRN #12 tablet 05/12/21 05/17/21 05/14/21 Rx Active Meds: Active Medications Dexamethasone (Dexamethasone 4 Mg/Ml Vial) 4 mg IV Q12HR [place] Last Admin: 05/18/21 10:55 Dose: 4 mg Documented by: Docusate Sodium (Docusate Sodium 100 Mg Cap) 100 mg PO BID [place] Last Admin: 05/18/21 10:55 Dose: 100 mg Documented by: Hydralazine HCl (Hydralazine 20 Mg/1 Ml Inj) 5 mg IV Q30MIN PRN PRN Reason: Hypertension Last Admin: 05/18/21 15:02 Dose: 5 mg Documented by: Dextrose/Sodium Chloride (D5/0.45ns) 1,000 mls @ 125 mls/hr IV DIRECT [facility] Last Admin: 05/17/21 22:35 Dose: 125 mls/hr Documented by: Ondansetron HCl (Ondansetron 4 Mg/2 Ml Inj) 4 mg IV Q8H PRN PRN Reason: Nausea And Vomiting Last Admin: 05/17/21 10:48 Dose: 4 mg Documented by: Oxycodone/Acetaminophen (Oxycodone /Acetaminophen 5-325mg Tab) 2 tab PO Q6H PRN PRN Reason: Pain, Moderate (4-6) Last Admin: 05/18/21 16:41 Dose: 2 tab Documented by: Sodium Chloride (Sodium Chloride 0.9% 10 Ml Flush Syringe) 10 ml IV BID [facility] Last Admin: 05/18/21 10:56 Dose: 10 ml Documented by: Sodium Chloride (Sodium Chloride 0.9% 10 Ml Flush Syringe) 10 ml IV PRN PRN PRN Reason: LINE FLUSH Tramadol HCl (Tramadol 50 Mg Tab) 100 mg PO Q6H [facility] Last Admin: 05/18/21 18:03 Dose: 100 mg Documented by: Review of Systems All systems: negative Neurological: other (Lower back pain with no radiation into the lower extremities) Exam - Constitutional Vitals: Temp Pulse Resp BP Pulse Ox 98.4 F 71 20 143/83 99 05/18/21 16:38 05/18/21 16:38 05/18/21 16:38 05/18/21 16:38 05/18/21 16:38 General appearance: Present: no acute distress, well-nourished - EENT Eyes: Present: PERRL ENT: hearing intact, clear oral mucosa - Neck Neck: Present: supple, normal ROM - Respiratory Respiratory effort: normal Respiratory: bilateral: CTA - Cardiovascular Heart rate: 78 Rhythm: regular Heart Sounds: Present: S1 & S2. Absent: rub, click - Extremities Extremities: no ischemia, pulses symmetrical, No edema Peripheral Pulses: within normal limits - Abdominal General gastrointestinal: Present: soft, non-tender, non-distended, normal bowel sounds Female genitourinary: Present: normal - Integumentary Integumentary: Present: clear, warm, dry - Musculoskeletal Musculoskeletal: gait normal, strength equal bilaterally - Psychiatric Psychiatric: appropriate mood/affect, intact judgment & insight - Neurologic Neurologic: CNII-XII intact, moves all extremities, gait normal, other (Visual rodriguez are normal, power is 5 x 5 in all 4 extremities. No focal deficits.) - Allied Health Allied health notes reviewed: nursing, case management Results - Labs CBC & Chem 7: 05/16/21 06:38 05/15/21 14:00 Labs: MR thoracic spine There is no disc protrusion or No significant stenosis involving the thoracic spine C-spine No significant disc abnormality L-spine There is a small disc bulge and facet joint changes at L5-S1 otherwise normal L- spine MRI Assessment and Plan - Patient Problems (1) Acute bilateral low back pain without sciatica Current Visit: No Status: Acute Plan to address problem: MRI of C-spine T-spine and L-spine are normal Mild disc bulge at L5/S1 Patient can follow-up with primary care Patient initiated on Percocet 10/650 4 times daily as needed Patient to be discharged on Percocet 7.5/325 and 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 Lawrence and her PCP and outpatient neurology if necessary At this point I do not think she needs a neurology follow-up. (3) Spasm of muscle of lower back Current Visit: No Status: Acute Plan to address problem: Patient will be discharged on baclofen and Percocet
[2021-05-18 21:08] VITALS: BP 158/88
== END 2021-05-18 23:25 | disposition home or self-care (01) | DRG 552 ==
LOC: ED 12:52 → OB 19:38
PROVIDERS: ADMIT Obstetrics & Gynecology; ATTEND Obstetrics & Gynecology
DX: M62.830 Muscle spasm of back (principal); N83.201 Unspecified ovarian cyst, right side; H53.40 Unspecified visual field defects; Z20.822 Contact with and (suspected) exposure to COVID-19; J45.909 Unspecified asthma, uncomplicated; Z90.49 Acquired absence of other specified parts of digestive tract; Z82.49 Family history of ischemic heart disease and other diseases of the circulatory system
CPT/HCPCS: 36415; 72156; 72157; 72158; 74177; 76856; 80053; 81001; 83690; 84702; 85007; 85025; 87210; 87591; 96374; 96375; G0378; J7070; A9575; J0360; J0696; J1100; J1885; J2270; J2405; Q9967; U0003